=== PATIENT | male | born 1945 | race Caucasian/White ===

== ENCOUNTER 2024-02-15 23:48 | Emergency (ER) | payer MEDICARE ==
[~2024-02-15 23:48] MED LIST: Iopamidol-370 76% 500 ML MDV (1 ML CHARGE) ONE
[2024-02-16 00:05] LABS: #Basophils 0.07 10x3/uL (0.0-0.2); %Basophils 0.9 % (0.0-1.0); %Lymphocytes 33.5 % (21.0-51.0); %Monocytes 10.6 % (0.0-10.0); %Neutrophils 51.9 % (42.0-75.0); Hematocrit 32.9 % (42.0-52.0); Hemoglobin 10.5 g/dL (14.0-18.0); Mean Corpuscular HGB CONC 31.9 g/dL (32.0-36.0); Mean Corpuscular Hemoglobin 26.6 pg (27.0-31.0); Mean Corpuscular Volume 83.3 fL (78.0-98.0); Platelet Count 277 10x3/uL (130-400); RBC Distribution Width 15.3 % (11.5-14.5); Red Blood Cell (RBC) Count 3.95 mill/uL (4.70-6.10)
[2024-02-16 00:19] LABS: INR-International Normal Ratio 3.1; PTT 33.6 sec (22.9-36.1); Prothrombin Time 32.1 sec (12.0-14.7)
[2024-02-16 00:22] LABS: ALT (SGPT) 21 U/L (8-55); AST (SGOT) 21 U/L (5-34); Albumin 3.7 g/dL (3.4-4.8); Alkaline Phosphatase 59 U/L (40-110); Anion Gap 14 mmol/L (10-20); BUN (Urea Nitrogen) 16 mg/dL (8.4-25.7); Bilirubin, Total 0.4 mg/dL (0.2-1.2); Calc. Creatinine Clearance 0 mL/min (70-130); Calcium 8.4 mg/dL (7.8-10.44); Carbon Dioxide 28 mmol/L (23-31); Chloride 101 mmol/L (98-107); Estimated GFR 66; Globulin 2.4 g/dL (2.4-3.5); Glucose 126 mg/dL (83-110); Potassium 3.8 mmol/L (3.5-5.1); Protein, Total 6.1 g/dL (5.8-8.1); Sodium 139 mmol/L (136-145)
[2024-02-16 00:25] LABS: Troponin I Less than 0.010 ng/mL (< 0.028)
[2024-02-16] MEDS ORDERED: Lidocaine 1% PF 5 ML VIAL ONE (01:08)
== END 2024-02-16 02:45 | disposition home or self-care (01) ==
LOC: ERS 23:48
DX: S01.01XA Laceration without foreign body of scalp, initial encounter (principal); E11.9 Type 2 diabetes mellitus without complications; E78.00 Pure hypercholesterolemia, unspecified; Z79.01 Long term (current) use of anticoagulants; I25.10 Atherosclerotic heart disease of native coronary artery without angina pectoris; W01.198A Fall on same level from slipping, tripping and stumbling with subsequent striking against other object, initial encounter; Y92.002 Bathroom of unspecified non-institutional (private) residence as the place of occurrence of the external cause
CPT/HCPCS: 12011; 36415; 70450; 71260; 72125; 74177; 80053; 84484; 85025; 85610; 85730; 86850; 86900; 86901; 93005; G0390; Q9967